=== PATIENT | male | born 1970 | race Caucasian/White ===

== ENCOUNTER 2018-05-26 08:00 | Outpatient (CLI) | payer OTHER ==
[2018-05-26 12:51] LABS: BASOPHILS # (AUTO) 0.1 10^3/uL (0.0-0.1); BASOPHILS % (AUTO) 0.6 %; EOSINOPHILS # (AUTO) 0.1 10^3/uL (0.0-0.7); EOSINOPHILS % (AUTO) 1.3 %; HGB - HEMOGLOBIN 13.6 g/dL (14.0-18.0); LYMPHOCYTES # (AUTO) 1.2 10^3/uL (1.5-3.5); MEAN CORPUSCULAR HEMOGLOBIN 29.6 pg (27.0-31.0); MEAN CORPUSCULAR HGB CONC 36.6 g/dL (32.0-36.0); MEAN CORPUSCULAR VOLUME 80.8 fL (80.0-94.0); MEAN PLATELET VOLUME 7.5 fL (7.4-11.4); MONOCYTES # (AUTO) 0.6 10^3/uL (0.0-1.0); NEUTROPHILS # (AUTO) 7.9 10^3/uL (1.5-6.6); NEUTROPHILS % (AUTO) 80.1 %; PLT - PLATELET COUNT 168 10^3/uL (130-450); RED BLOOD COUNT 4.59 10^6/uL (4.70-6.10); RED CELL DISTRIBUTION WIDTH 17.2 % (12.0-15.0); WHITE BLOOD COUNT 9.9 x10^3/uL (4.8-10.8)
[2018-05-26 13:20] LABS: ALBUMIN 4.6 g/dL (3.2-5.5); ALBUMIN/GLOBULIN RATIO 2.1 (1.0-2.2); ALKALINE PHOSPHATASE 66 IU/L (42-121); ALT ALANINE AMINOTRANSFERASE 22 IU/L (10-60); AST ASPARTATE AMINOTRANSFERASE 25 IU/L (10-42); BILIRUBIN,TOTAL 1.3 mg/dL (0.2-1.0); BUN - BLOOD UREA NITROGEN 15 mg/dL (6-20); CALCIUM 9.1 mg/dL (8.5-10.3); CARBON DIOXIDE - CO2 26 mmol/L (21-32); CHLORIDE 103 mmol/L (101-111); CHOL/HDL RATIO 3.1 (<5.0); CHOLESTEROL 145 mg/dL; CREATININE 0.7 mg/dL (0.6-1.2); GFR - MDRD 119 (>89); GLUCOSE 94 mg/dL (70-100); HDL CHOLESTEROL 47 mg/dL; LDL CHOLESTEROL,CALCULATED 77 mg/dL; LDL/HDL RATIO 1.6 (<3.6); SODIUM 135 mmol/L (135-145); TOTAL PROTEIN 6.8 g/dL (6.7-8.2); VLDL CHOLESTEROL 21 mg/dL
== END 2018-05-26 23:59 ==
LOC: LAB.WCP 08:00
PROVIDERS: ATTEND Family Medicine
DX: Z00.00 Encounter for general adult medical examination without abnormal findings (principal)
CPT/HCPCS: 36415; 80053; 80061; 83721; 84443; 85025

== ENCOUNTER 2018-06-09 08:00 | Outpatient (CLI) | payer OTHER ==
[2018-06-09 14:08] LABS: MEAN RETIC VALUE 84.8; RED BLOOD COUNT 4.67 10^6/uL (4.70-6.10)
[2018-06-09 16:28] LABS: FERRITIN 222.7 ng/mL (23.9-336.2)
[2018-06-09 16:32] LABS: FOLATE 8.45 ng/mL (5.90 - >24.8)
[2018-06-09 17:15] LABS: % IRON SATURATION 40 % (20-50); IRON 97 ug/dL (45-182); TOTAL IRON BINDING CAPACITY 241 ug/dL (250-450); TRANSFERRIN 172 mg/dL (180-329)
== END 2018-06-09 23:59 | disposition home or self-care (01) ==
LOC: LAB.WCP 08:00
PROVIDERS: ATTEND Family Medicine
DX: D64.9 Anemia, unspecified (principal)
CPT/HCPCS: 36415; 82728; 82746; 83540; 84466; 85044

== ENCOUNTER 2018-07-16 09:19 | Outpatient (CLI) | payer OTHER ==
--- NOTE | 2018-07-17 20:08 | MRI Report ---
Reason: ROTATOR CUFF TENDONITIS Procedure Date: 07/16/2018 Accession Number: [id number] / [id number] Procedure: MRI - Shoulder RT W/O CPT Code: FULL RESULT: EXAM: RIGHT SHOULDER MRI WITHOUT CONTRAST. EXAM DATE: 07/16/2018 10:21 AM. CLINICAL HISTORY: Rotator cuff tendonitis. Right shoulder pain after injury on 05/26/2018. COMPARISON: 05/26/2018 radiographs. TECHNIQUE: Multiplanar, multisequence T1-weighted and fluid-sensitive sequences of the shoulder without contrast. Other: None. FINDINGS: Acromioclavicular Region: The acromion is type II. Severe acromioclavicular osteoarthropathy as evidenced by bony hypertrophy, periarticular cyst formation, and a mild effusion. The coracoacromial and coracoclavicular ligaments are intact. A mild amount of fluid is in the subacromial/subdeltoid bursa. Glenohumeral Region: No subluxation. A moderate effusion is seen. The articular cartilage is unremarkable. The glenohumeral ligaments and joint capsule are unremarkable. Bone Marrow: No fractures. Cysts are in the greater tuberosity. Labrum: As there is a paralabral cyst adjacent to the anteroinferior labrum, a poorly visualized tear is suspected. The paralabral cyst measures approximately 4 mm (41/14). Musculature/Rotator Cuff: The subscapularis tendon is intact. The supraspinatus tendon has an intrasubstance tear throughout its width that measures as much as 1.9 cm in length and up to 75% of the thickness. The infraspinatus tendon contains a small intrasubstance tear at the myotendinous junction. The teres minor tendon is intact. No edema or fatty atrophy. Biceps Tendon: The biceps tendon is severely thickened and contains longitudinal tearing. Other: The subcutaneous tissues are unremarkable. IMPRESSION: 1. Severe acromioclavicular osteoarthropathy. 2. Mild subacromial/subdeltoid bursitis. 3. Moderate glenohumeral joint effusion. 4. A paralabral cyst adjacent to the anterior inferior labrum raises suspicion for a tear. This could be further evaluated with an MRI arthrogram if clinically indicated. 5. Large intrasubstance tear of the supraspinatus tendon. 6. Small intrasubstance tear of the infraspinatus myotendinous junction. 7. Severe biceps tendinosis with longitudinal tearing. [facility] MUSCULOSKELETAL RADIOLOGY SECTION
== END 2018-07-16 09:20 | disposition home or self-care (01) ==
LOC: DI 09:19
PROVIDERS: ATTEND Orthopaedic Surgery Sports Medicine
DX: M19.011 Primary osteoarthritis, right shoulder (principal); M25.411 Effusion, right shoulder; M75.51 Bursitis of right shoulder; M75.101 Unspecified rotator cuff tear or rupture of right shoulder, not specified as traumatic; S43.491A Other sprain of right shoulder joint, initial encounter; S46.211A Strain of muscle, fascia and tendon of other parts of biceps, right arm, initial encounter; M25.811 Other specified joint disorders, right shoulder

== ENCOUNTER 2018-09-12 10:56 | Outpatient (CLI) | payer OTHER ==
[2018-09-12 18:12] LABS: BASOPHILS % (AUTO) 0.4 %; EOSINOPHILS # (AUTO) 0.1 10^3/uL (0.0-0.7); EOSINOPHILS % (AUTO) 0.8 %; HGB - HEMOGLOBIN 13.9 g/dL (14.0-18.0); LYMPHOCYTES # (AUTO) 0.9 10^3/uL (1.5-3.5); LYMPHOCYTES % (AUTO) 11.5 %; MEAN CORPUSCULAR HEMOGLOBIN 29.8 pg (27.0-31.0); MEAN CORPUSCULAR HGB CONC 35.8 g/dL (32.0-36.0); MEAN CORPUSCULAR VOLUME 83.1 fL (80.0-94.0); MEAN PLATELET VOLUME 7.4 fL (7.4-11.4); MEAN RETIC VALUE 85.1; MONOCYTES # (AUTO) 0.4 10^3/uL (0.0-1.0); MONOCYTES % (AUTO) 5.4 %; NEUTROPHILS # (AUTO) 6.5 10^3/uL (1.5-6.6); NEUTROPHILS % (AUTO) 81.9 %; PLT - PLATELET COUNT 153 10^3/uL (130-450); RED BLOOD COUNT 4.66 10^6/uL (4.70-6.10); RED CELL DISTRIBUTION WIDTH 16.8 % (12.0-15.0); WHITE BLOOD COUNT 7.9 x10^3/uL (4.8-10.8)
[2018-09-12 19:06] LABS: FERRITIN 254.3 ng/mL (23.9-336.2)
[2018-09-12 19:09] LABS: FOLATE 9.26 ng/mL (5.90 - >24.8)
[2018-09-12 19:16] LABS: % IRON SATURATION 36 % (20-50); IRON 94 ug/dL (45-182); TOTAL IRON BINDING CAPACITY 262 ug/dL (250-450); TRANSFERRIN 187 mg/dL (180-329)
== END 2018-09-12 10:57 | disposition home or self-care (01) ==
LOC: LAB.F 10:56
PROVIDERS: ATTEND Internal Medicine
DX: R53.83 Other fatigue (principal)
CPT/HCPCS: 36415; 81599; 82607; 82728; 82746; 83021; 83540; 84466; 85014; 85018; 85025; 85041; 85044

== ENCOUNTER 2018-10-14 08:26 | Outpatient (CLI) | payer OTHER ==
[2018-10-14 08:43] LABS: BASOPHILS # (AUTO) 0.1 10^3/uL (0.0-0.1); BASOPHILS % (AUTO) 0.7 %; EOSINOPHILS # (AUTO) 0.1 10^3/uL (0.0-0.7); EOSINOPHILS % (AUTO) 0.7 %; HGB - HEMOGLOBIN 13.9 g/dL (14.0-18.0); LYMPHOCYTES # (AUTO) 0.9 10^3/uL (1.5-3.5); MEAN CORPUSCULAR HEMOGLOBIN 29.4 pg (27.0-31.0); MEAN CORPUSCULAR HGB CONC 36.1 g/dL (32.0-36.0); MEAN CORPUSCULAR VOLUME 81.6 fL (80.0-94.0); MEAN PLATELET VOLUME 6.7 fL (7.4-11.4); MONOCYTES # (AUTO) 0.6 10^3/uL (0.0-1.0); MONOCYTES % (AUTO) 6.4 %; NEUTROPHILS # (AUTO) 7.5 10^3/uL (1.5-6.6); NEUTROPHILS % (AUTO) 82.2 %; PLT - PLATELET COUNT 153 10^3/uL (130-450); RED BLOOD COUNT 4.72 10^6/uL (4.70-6.10); RED CELL DISTRIBUTION WIDTH 16.9 % (12.0-15.0); WHITE BLOOD COUNT 9.1 x10^3/uL (4.8-10.8)
[2018-10-14 10:49] LABS: ALBUMIN 4.3 g/dL (3.2-5.5); ALBUMIN/GLOBULIN RATIO 1.6 (1.0-2.2); BILIRUBIN,TOTAL 1.4 mg/dL (0.2-1.0); CALCIUM 9.3 mg/dL (8.5-10.3); CREATININE 0.7 mg/dL (0.6-1.2)
== END 2018-10-14 08:27 | disposition home or self-care (01) ==
LOC: LAB 08:26
PROVIDERS: ATTEND Orthopaedic Surgery Sports Medicine
DX: Z01.818 Encounter for other preprocedural examination (principal); M75.101 Unspecified rotator cuff tear or rupture of right shoulder, not specified as traumatic; M75.121 Complete rotator cuff tear or rupture of right shoulder, not specified as traumatic; M75.41 Impingement syndrome of right shoulder
CPT/HCPCS: 36415; 80053; 85025; 93005

== ENCOUNTER 2018-11-16 06:01 | Day surgery (SDC) | payer OTHER ==
[2018-11-16] MEDS ORDERED: LACTATED RINGERS 1,000 ML IV ONE ×2 (06:19→10:12)
[2018-11-16] MEDS ORDERED: CEFAZOLIN SODIUM IN 0.9 % NACL 2 GM/100 ML BAG IV ONE (06:42)
[2018-11-16] MEDS ORDERED: EPINEPHrine 1 MG/ML AMP ONE (07:02)
--- NOTE | 2018-11-16 07:11 | ANESTHESIA ---
Pre-Anesthesia VS, & Labs - Diagnosis rotator cuff impingement - Procedure Right shoulder Arthroscopy, RCR Vital Signs: Temp Pulse Resp BP Pulse Ox 36.4 C L 70 12 137/87 H 96 11/16/18 06:19 11/16/18 06:19 11/16/18 06:19 11/16/18 06:19 11/16/18 06:19 Height 5 ft 6 in Weight (kg) 70.3 kg Body Mass Index 25.2 - NPO >8 hours Home Medications and Allergies Home Medications: Ambulatory Orders Cyclobenzaprine HCl 10 mg PO TID PRN 10/14/18 Pnv No.121/Iron/Folic Acid [ Multivitamin Tablet] 1 each PO DAILY 10/14/18 Cholecalciferol (Vitamin D3) [Vitamin D3] 1,000 unit PO DAILY 11/16/18 Cyanocobalamin (Vitamin B-12) [Vitamin B-12] 2 tab PO DAILY 11/16/18 Multivitamin [Multiple Vitamins] 1 tab PO DAILY 11/16/18 Meloxicam 15 mg PO DAILY 10/04/18 Cyclobenzaprine HCl 10 mg PO TID PRN 10/14/18 Pnv No.121/Iron/Folic Acid [ Multivitamin Tablet] 1 each PO DAILY 10/14/18 Cholecalciferol (Vitamin D3) [Vitamin D3] 1,000 unit PO DAILY 11/16/18 Cyanocobalamin (Vitamin B-12) [Vitamin B-12] 2 tab PO DAILY 11/16/18 Multivitamin [Multiple Vitamins] 1 tab PO DAILY 11/16/18 Allergies/Adverse Reactions: Allergies Allergy/AdvReac Type Severity Reaction Status Date / Time naproxen AdvReac bladder Verified 10/14/18 09:49 irritation Anes History & Medical History - Anesthetic History Anesthesia Complications: reports: Post-Operative Nausea/Vomiting - Medical History Cardiovascular: reports: Murmur, Other (denies chest pain) Pulmonary: reports: None Gastrointestinal: reports: Other Urinary: reports: None Neuro: reports: None Musculoskeletal: reports: Osteoarthritis Endocrine/Autoimmune: reports: None Blood Disorders: reports: Anemia Skin: reports: None Smoking Status: Never smoker - Surgical History General: Other Orthopedic: Other Exam General: Alert Dental: WNL Mouth Opening: Greater than 4 Fingerbreadths Mallampati classification: I Thyromental Distance: greater than 6 cm Respiratory: Lungs clear Cardiovascular: Regular rate, Normal S1, Normal S2 Plan Anesthesia Type: General Consent for Procedure(s) Verified and Reviewed: Yes Code Status: Attempt Resuscitation ASA classification: 1-Healthy patient Is this case an emergency?: No
[2018-11-16] MEDS ORDERED: SCOPOLAMINE PATCH TOP ONE (07:22)
[2018-11-16] MEDS ORDERED: BUPIVACAINE 0.25%-EPI 1:200000 PF 30 ML VIAL ONE (07:31)
[2018-11-16] MEDS ORDERED: fentaNYL 100 MCG/2 ML VIAL IVP ONE (08:00)
[2018-11-16] MEDS ORDERED: DEXAMETHASONE 4 MG/ML VIAL IVP ONE (08:00)
[2018-11-16] MEDS ORDERED: MIDAZOLAM 2 MG/2 ML VIAL IVP ONE (08:00)
[2018-11-16] MEDS ORDERED: ROCURONIUM 50 MG/5 ML VIAL IVP ONE (08:00)
[2018-11-16] MEDS ORDERED: PROPOFOL 200 MG/20 ML VIAL IVP ONE (08:00)
[2018-11-16] MEDS ORDERED: BUPIVACAINE 0.5% PF 10 ML VIAL IM ONE (08:00)
[2018-11-16] MEDS ORDERED: ONDANSETRON 4 MG/2 ML VIAL IVP ONE (08:00)
[2018-11-16] MEDS ORDERED: ONDANSETRON 4 MG/2 ML VIAL IVP PRN (10:01)
[2018-11-16] MEDS ORDERED: oxyCODONE 5 MG TABLET PO PRN (10:03)
--- NOTE | 2018-11-16 10:06 | IMMEDIATE POSTOPERATIVE NOTE ---
Immediate Postoperative Note - Procedure Note Procedure Date: 11/16/18 Pre-Op Diagnosis: Right shoulder rotator cuff tear subacromial impinge Procedure: Right shoulder arthroscopic rotator cuff repair and subacromial decompressi Post-Op Diagnosis: Same [employer] Developer: None Anesthesia Type: General ET tube, Local, Regional block Findings: As above Complications: No complications Estimated Blood Loss (in cc): 25 Specimens and Cultures: None Plan of Care: Patient tolerated procedure well instrument and sponge counts correct patient transferred to recovery room in stable condition Patient will follow standard postoperative right shoulder rotator cuff repair protocol. He will do no right shoulder active motion. He may gently move elbow wrist and hand when at rest though generally would be in sling unless showering after 3 days. Patient will follow-up in 10 to 14 days or sooner on an as-needed basis if problems questions or worsening of his condition should arise
[2018-11-16] MEDS ORDERED: PROMETHAZINE 25 MG/1 ML VIAL ONE (10:28)
[2018-11-16 11:46] VITALS: BP 130/80
--- NOTE | 2018-11-16 12:18 | OPERATIVE REPORT ---
DATE OF SERVICE: 11/16/2018 Physician: Martell Ahumada MD SURGEON: Martell Ahumada MD MANAGER CAMP: None. ANESTHESIA PROVIDER: Kady Barrera CRNA. ANESTHESIA: Right side regional block shoulder under ultrasound guidance, general endotracheal. Local anesthesia, 20 mL of 0.25% Marcaine with epinephrine local. ESTIMATED BLOOD LOSS: Less than 25 mL COMPRESSION DEVICE: Bilateral calf SCD boots. PREOPERATIVE ANTIBIOTICS: 2 grams weight-based IV Ancef. ORTHOPEDIC IMPLANTS 1. 2 x 5.5 play BioComposite Arthrex anchor. 2. Additional #2 FiberWire suture. PREOPERATIVE DIAGNOSES 1. Right shoulder rotator cuff tear. 2. Right shoulder subacromial impingement. POSTOPERATIVE DIAGNOSES 1. Right shoulder rotator cuff tear. 2. Right shoulder subacromial impingement. PROCEDURE 1. Right shoulder arthroscopic rotator cuff repair, supraspinatus. 2. Right shoulder arthroscopic subacromial decompression. HISTORY OF PRESENT ILLNESS AND INDICATIONS: Patient is an active 48-year-old male who is known to have a tear of the supraspinatus. He had a right shoulder impingement and had a spontaneous rupture of the long head biceps. He was indicated for operative treatment. Please see previous clinic discussion for risks, benefits, alternatives. These were again highlighted with him as well as his significant other, JENNIFER, in the preoperative care unit. He verbalized understanding of the above and previous discussion questions were answered. He verbalizes wish to proceed with operative treatment. Informed consent was given. INTRAOPERATIVE FINDINGS: Patient was noted to have grade 1-2 chondromalacia of glenohumeral joint, particularly of the glenoid with fraying of the labrum and significant fraying of residual long head biceps from the superior labrum. High-grade and in parts small complete tear of the anterior aspect of the supraspinatus, as well as some interstitial tearing more proximal towards the tendon intratendinous portion with some stranding and small wwkw-rt-ycvb split of the tendinous portion of the supraspinatus. Post-repair, the rotator cuff was to the near anatomic footprint with good integrity of both the repair to the greater tuberosity as well as the sdmj-bk-eyjh split. There is downsloping of the anterior aspect of the acromion, which was converted to a type 1 acromion post-procedure. PROCEDURE: On 11/16/2018 patient was identified in the preoperative care unit. He identified his right shoulder as the operative site. This is signed. Patient received preoperative weight-based IV Ancef. He was brought to the operating room, placed supine on the operating table. General anesthesia was administered, ultrasound-guided right side regional block administered in the preoperative care unit prior bringing to the operating room. At this point, once the patient is under general anesthesia, he was placed left side down lateral decubitus position with appropriately placed axillary roll to avoid any encumbrance of the axilla. Down leg is gel-padded, beanbag position was used. Head, neck and extremities placed in anatomically comfortable and safe positions to avoid peripheral nerve stretch compression. SCD boots were on the bilateral lower extremity calves. At this point, right upper extremity is draped out and then pre-scrubbed with Hibiclens solution followed by alcohol. At this point, the right upper extremity and right shoulder were prepped and draped in the usual sterile fashion; 15 pounds of traction are used. At this point, surgical pause identified as right shoulder. Local anesthetic was infused posteriorly, anteriorly and laterally. A small incision was made posteriorly. Scope was introduced into the glenohumeral joint. A diagnostic arthroscopy was carried out. Please see operative findings. At this point, portal was created into the rotator interval and meniscal shaver was used to debride the superior labrum of frayed long head biceps residual tissue. At this point, the supraspinatus was identified and the soft injured area anteriorly was identified and marked with a PDS, using a spinal needle and then attention was directed towards the subacromial space. At this point, a lateral incision was made. A combination of meniscal shaver, and arthroscopic heating device with appropriate flow to avoid thermal injury was used to accomplish the soft tissue debridement of the subacromial space. Coracoacromial ligament is elevated off the acromion and then the anterior aspect of the acromion is burred to a type 1 acromion. At this point, attention was directed towards the rotator cuff tear. A blunt probe easily pushed through the tearing of the anterior aspect of the supraspinatus. At this point, this area was developed with a mechanical shaver as well as meniscal baskets to a fresh edge of rotator cuff tissue. The adjacent areas were probed and noted to be stable and then just proximal to this area. There was noted to be a small wzlk-zb-rbtf split with some stranding of the fibers there which were repaired later with vxuv-wr-yumr suture. At this point, the rotator cuff footprint was debrided, first with a mechanical shaver and then a bur and then sequential anterior and posterior anchors were placed, followed by 5 simple sutures in a posterior horizontal mattress suture using a Scorpion device. These were tied in reverse order thereby re-apposing the rotator cuff to the near-anatomic footprint. Sutures were tied. Suture limbs were cut. At this point, I decided that there was a small tear that would benefit from a rzdy-by-delz repair. As such, a suture shuttle was used to place 2 simple skbl-wv-mklv sutures in the abraded and stranded area of the supraspinatus tendon. These were passed and then tied thereby re-apposing this area of apro-xk-eccz injury. At this point, the subacromial space was copiously irrigated and evacuated of loose debris. Instruments are removed. Local anesthesia was infused around the incisions. Arthroscopic portals were closed using interrupted nylon suture. Skin is washed and dried. Xeroform dressing is applied. Dry sterile dressing was applied MicroPort micropore tape was applied. The patient was placed in abduction pillow sling. It should be noted that an auxiliary anterolateral incision was used for placement of anchors. Patient tolerated the procedure well. Instrument and sponge counts were correct. Patient was brought to the recovery room in stable condition. He will follow standard postoperative rotator cuff repair protocol which was previously reviewed with him and his significant other. Patient was put on perioperative antibiotics for 24 hours, perioperative analgesia medication, as well as antinausea medication. Denies any contraindication to medications prescribed, will use them as directed. Follow up in 10-14 days in Orthopedic Clinic, though sooner should problems or questions arise. The aforementioned reviewed with the patient preoperatively and then again with patient's significant other postoperatively as were the arthroscopic photos. Her questions were answered to her understanding and satisfaction with plan as outlined. TD: 11/16/2018 11:49 PIERO
== END 2018-11-16 06:02 | disposition home or self-care (01) ==
LOC: SDS 06:01
PROVIDERS: ATTEND Orthopaedic Surgery Sports Medicine
PROC: 0RNJ4ZZ Release Right Shoulder Joint, Percutaneous Endoscopic Approach (ICD-10-PCS; 2018-11-16)
PROC: 0LQ14ZZ Repair Right Shoulder Tendon, Percutaneous Endoscopic Approach (ICD-10-PCS; principal; 2018-11-16 07:30)
DX: S46.011A Strain of muscle(s) and tendon(s) of the rotator cuff of right shoulder, initial encounter (principal); S46.111A Strain of muscle, fascia and tendon of long head of biceps, right arm, initial encounter; S43.491A Other sprain of right shoulder joint, initial encounter; M75.41 Impingement syndrome of right shoulder; M94.211 Chondromalacia, right shoulder
CPT/HCPCS: 29826; 29827; C1713; J0690; J3490; J7120

== ENCOUNTER 2019-01-27 11:48 | Day surgery (SDC) | payer OTHER ==
[~2019-01-27 11:48] MED LIST: BUPIVACAINE 0.5% PF 10 ML VIAL ONE
[2019-01-27] MEDS ORDERED: MIDAZOLAM 2 MG/2 ML VIAL IVP ONE (11:49)
[2019-01-27] MEDS ORDERED: PROPOFOL 200 MG/20 ML VIAL IVP ONE (11:49)
[2019-01-27] MEDS ORDERED: ONDANSETRON 4 MG/2 ML VIAL IVP ONE (11:49)
[2019-01-27] MEDS ORDERED: DEXAMETHASONE 4 MG/ML VIAL IVP ONE (11:49)
[2019-01-27] MEDS ORDERED: fentaNYL 100 MCG/2 ML VIAL IVP ONE (11:49)
[2019-01-27] MEDS ORDERED: LACTATED RINGERS 1,000 ML IV ONE ×2 (11:56→14:39)
[2019-01-27] MEDS ORDERED: CEFAZOLIN SODIUM IN 0.9 % NACL 2 GM/100 ML BAG IV ONE (12:08)
--- NOTE | 2019-01-27 12:25 | ANESTHESIA ---
Pre-Anesthesia VS, & Labs - Diagnosis L inguinal hernia - Procedure L inguinal hernia repair Vital Signs: Temp Pulse Resp BP Pulse Ox 36.7 C 51 L 15 104/73 99 01/27/19 12:09 01/27/19 12:09 01/27/19 12:09 01/27/19 12:09 01/27/19 12:09 Height 5 ft 6 in Weight (kg) 71.67 kg Body Mass Index 25.2 - NPO Last Fluid Intake: coffee @0555 Last Food Intake: >8 Home Medications and Allergies Home Medications: Ambulatory Orders Acetaminophen [Tylenol] 650 mg PO Q6H PRN 01/26/19 Ibuprofen [Motrin] 600 mg PO Q6H PRN 01/26/19 Cyclobenzaprine HCl 10 mg PO TID PRN 10/14/18 Pnv No.121/Iron/Folic Acid [ Multivitamin Tablet] 1 each PO DAILY 10/14/18 Cyanocobalamin (Vitamin B-12) [Vitamin B-12] 2 tab PO DAILY 11/16/18 Acetaminophen [Tylenol] 650 mg PO Q6H PRN 01/26/19 Ibuprofen [Motrin] 600 mg PO Q6H PRN 01/26/19 Allergies/Adverse Reactions: Allergies Allergy/AdvReac Type Severity Reaction Status Date / Time naproxen AdvReac bladder Verified 10/14/18 09:49 irritation oxycodone AdvReac Nausea Verified 01/24/19 16:09 Anes History & Medical History - Anesthetic History Anesthesia Complications: reports: Post-Operative Nausea/Vomiting (scope patched placed @R ear pre-op) Family history of Anesthesia Complications: Denies Family history of Malignant Hyperthermia: Denies - Medical History Cardiovascular: reports: Murmur Pulmonary: reports: None Gastrointestinal: reports: None Urinary: reports: None Neuro: reports: None Musculoskeletal: reports: Osteoarthritis Endocrine/Autoimmune: reports: None Blood Disorders: reports: Anemia Skin: reports: None Smoking Status: Current some day smoker Psychosocial: reports: Cannabis - Surgical History General: Other Orthopedic: Rotator cuff repair, Other Exam General: Alert, Oriented x3, Cooperative Dental: WNL Mouth Openin Fingerbreadth Neck Mobility: Normal Mallampati classification: II Thyromental Distance: 4-6 cm Respiratory: Lungs clear, Normal breath sounds, No respiratory distress Cardiovascular: Regular rate Neurological: Normal speech Mental/Cognitive Status: Alert/Oriented X3, Normal for patient Cognitive Status: Within normal limits Plan Anesthesia Type: General Consent for Procedure(s) Verified and Reviewed: Yes Code Status: Attempt Resuscitation ASA classification: 2-Mild systemic disease Is this case an emergency?: No
[2019-01-27] MEDS ORDERED: SCOPOLAMINE PATCH TOP ONE (12:29)
[2019-01-27] MEDS ORDERED: BUPIVACAINE 0.5% PF 10 ML VIAL IM ONE (13:46)
[2019-01-27] MEDS ORDERED: ONDANSETRON 4 MG/2 ML VIAL IVP PRN (14:20)
[2019-01-27] MEDS ORDERED: HYDROcod/ACETAM 5/325 MG TABLET PO PRN (14:20)
[2019-01-27] MEDS ORDERED: HYDROmorphone 0.5 MG/0.5 ML SYRINGE IVP PRN (14:20)
--- NOTE | 2019-01-27 14:20 | OPERATIVE REPORT ---
Operative Report - General Procedure Date: 01/27/19 Planned Procedure: Left inguinal herniorrhaphy Pre-Op Diagnosis: Left inguinal hernia Procedure Performed: Left indirect inguinal herniorrhaphy with mesh Post Op Diagnosis: Sliding indirect left inguinal hernia - Procedure Note Primary Surgeon: Coy Alvarez MD Anesthesia Provider: Louie Pinzon CRNA Anesthesia Technique: General LMA, Local (30 mL of half percent Marcaine) IV Fluids (mL): 900 Estimated Blood Loss (mL): 5 Drain/Tube Type: Other (None.) Complications: None. - Other Other Information/Narrative: OPERATIVE DESCRIPTION/REPORT: After verbal and written informed consent was obtained detailing the risks of infection, bleeding requiring transfusion with its risks, nerve injury, and , and after I met with the patient confirming the surgery and the site of the surgery and after initialing the site of the surgery with a surgical marker, the patient was brought to the operative suite and placed supine on the operat ing table. Great care was taken to avoid pressure points to prevent pressure necrosis or nerve injury. Monitoring devices were applied along with TEDs and pneumatic compressive stockings (to prevent DVT). The patient received preoperative antibiotics for surgical prophylaxis. Louie Pinzon CRNA sedated and anesthetized the patient for the entire procedure. The patient was prepped and draped in the usual sterile manner. With the patient draped my initials were clearly visible. A "time in" then confirmed that the patient was identified with 3 identifiers (name, date and medical record number), the history and physical was in the chart, the signed consent confirming the procedure was in the chart, the patient was in the correct position, the aforementioned prophylactic measures were in place or given, we had the correct personnel and equipment to complete the procedure and that anesthesia, surgery and nursing were given an opportunity to express any concerns. With the agreeme nt of everyone in the room, we proceeded with the operation. A standard inguinal incision was made and dissection was carried down to the external oblique aponeurosis using a combination of Metzenbaum scissors and Bovie electrocautery. The external oblique aponeurosis was cleared of overlying adherent tissue, and the external ring was delineated. The external oblique was the incised with a scalpel and this incision was carried out to the external ring using Metzenbaum scissors. Having exposed the inguinal canal, the cord structures were from the canal using blunt dissection, and a [place] drain was placed around the cord structures at the level of the pubic tubercle. This [place] drain was then used to retract the cord structures as needed. Adherent cremasteric muscle was dissected free from the cord using Bovie electrocautery. The cord was then explored using a combination of sharp and blunt dissection, and the sac was found anteromedially to the cord structures. The sac was dissected free from the cord structures using a combination of blunt dissection and Bovie electrocautery. Once preperitoneal fat was encountered, the dissection stopped and the sac was examined and noted to be a sliding indirect inguinal hernia sac. As a result, the sac was not high ligated but rather placed back into the abdominal cavity and an extra-large Bard Perfix plug (Ref# [id number], Lot#[id number], use date 2023-06-13) inserted into the internal ring. The plug was secured to the internal ring by interrupted 2-0 PDS sutures. The Bard Perfix enlay patch was then placed on the floor of the inguinal canal and secured in place using interrupted 0 PDS sutures to the conjoined tendon superiorly, pubic tubercle medially, and shelving edge inferiorly. By reinforcing the floor with the enlay patch, a new internal ring was thus formed. The Steven drain was removed. The wound was then irrigated using sterile saline, and hemostasis was obtained using Bovie electrocautery. The incision in the external oblique was approximated using a 3-0 Vicryl in a running fashion, thus reforming the external ring. The fascia and skin was then injected with the 1/2% marcaine for fpc pain control. The skin incision was approximated with 4-0 Monocryl in a subcuticular fashion. The skin prep was removed and Dermabond was applied. At this point a time out was performed that confirmed that all the counts were correct, the procedure that was performed, the blood loss, the IV fluids administered, and the patients condition. A dressing was then applied. Gentle downward traction ensured that the testes were well seated in the scrotum. Having tolerated the procedure well, the patient was taken to short stay in good and stable condition. Toplist disclaimer: This document was created in part using voice recognition technology. Because of the inherent limitations of the system ([employer]'s [employer] user manual states that the licensee understands that speech recognition is a statistical process and that recognition errors are inherent in the process), occasional same sounding word substitutions and grammatical errors do occur and persist despite proofreading. Please read this document for context.
[2019-01-27 16:10] VITALS: BP 114/72
== END 2019-01-27 11:49 | disposition home or self-care (01) ==
LOC: SDS 11:48 → MS2 15:59 → SDS 15:59
PROVIDERS: ATTEND Surgery
PROC: 0YU60JZ Supplement Left Inguinal Region with Synthetic Substitute, Open Approach (ICD-10-PCS; principal; 2019-01-27 13:30)
DX: K40.90 Unilateral inguinal hernia, without obstruction or gangrene, not specified as recurrent (principal); M19.90 Unspecified osteoarthritis, unspecified site; D64.9 Anemia, unspecified; Z72.89 Other problems related to lifestyle; R01.1 Cardiac murmur, unspecified
CPT/HCPCS: 49525; C1781; J0690; J3490; J7120

== ENCOUNTER 2019-03-19 07:21 | Outpatient (CLI) | payer OTHER ==
--- NOTE | 2019-03-19 19:35 | Ultrasound Report ---
Reason: POST PROCEDURAL SEROMA OF GENITOURINARY SYSTEM ORGAN OR STRUCTURE Procedure Date: 03/19/2019 Accession Number: [id number] / [id number] Procedure: US - Testicle CPT Code: Addended Final Report FULL RESULT: EXAM: SCROTAL ULTRASOUND EXAM DATE: 03/19/2019 08:22 AM. CLINICAL HISTORY: POST PROCEDURAL SEROMA OF GENITOURINARY SYSTEM ORGAN OR STRUCTURE. COMPARISON: None. TECHNIQUE: Real-time scanning was performed with static images obtained. Color-flow images were utilized. FINDINGS: Right: Testis: 4.8 x 2.1 x 2.8 cm. Normal size and echotexture. No mass, calcification, or abnormal blood flow. Epididymis: 5.2 x 1.0 x 0.4 cm. A small cyst in the epididymal head measuring up to 1.4 cm Hydrocele: Trace hydrocele Varicocele: None. Left: Testis: 4.7 x 2.3 x 2.7 cm. Normal size and echotexture. No mass, calcification, or abnormal blood flow. Epididymis: 3.9 x 1.0 x 0.4 cm. Normal size and echotexture. No mass or abnormal blood flow. Hydrocele: Trace Varicocele: None. Other: Along left inguinal ligament, there is a multiseptated cystic appearing fluid collection measuring 10.1 x 3.4 x 5.7 cm. Located anterior to the mesh from the hernia repair. IMPRESSION: 1. Fluid collection in the left groin could represent postoperative hematoma, seroma, or abscess. 2. No evidence of torsion. Trace bilateral hydroceles. [facility] The call report notification system was initiated by Dr. Dario Cortez at 07:33 PM on 03/19/2019. ADDENDUM: 03/19/19 19:36 The above call report findings were discussed with Dr. Fang by Dr. Dario Cortez at 07:36 PM on 03/19/2019.
== END 2019-03-19 07:22 | disposition home or self-care (01) ==
LOC: DI 07:21
PROVIDERS: ATTEND Surgery
DX: N99.842 Postprocedural seroma of a genitourinary system organ or structure following a genitourinary system procedure (principal)
CPT/HCPCS: 76870

== ENCOUNTER 2019-03-25 13:55 | Outpatient (CLI) | payer OTHER | END 2019-03-25 13:56 | disposition home or self-care (01) | LOC: DI 13:55 | PROVIDERS: ATTEND Internal Medicine | DX: Z53.9 Procedure and treatment not carried out, unspecified reason (principal) ==

== ENCOUNTER 2019-04-04 12:01 | Day surgery (SDC) | payer OTHER ==
[~2019-04-04 12:01] MED LIST changes: -BUPIVACAINE 0.5% PF 10 ML VIAL ONE; +CEFAZOLIN SODIUM IN 0.9 % NACL 2 GM/100 ML BAG IV ONE
[2019-04-04] MEDS ORDERED: DEXAMETHASONE 4 MG/ML VIAL IVP ONE (12:02)
[2019-04-04] MEDS ORDERED: PROPOFOL 200 MG/20 ML VIAL IVP ONE (12:02)
[2019-04-04] MEDS ORDERED: KETOROLAC 30 MG/ML VIAL IVP ONE (12:02)
[2019-04-04] MEDS ORDERED: MIDAZOLAM 2 MG/2 ML VIAL IVP ONE (12:02)
[2019-04-04] MEDS ORDERED: fentaNYL 100 MCG/2 ML VIAL IVP ONE (12:02)
[2019-04-04] MEDS ORDERED: LACTATED RINGERS 1,000 ML IV ONE (12:37)
--- NOTE | 2019-04-04 13:00 | ANESTHESIA ---
Pre-Anesthesia VS, & Labs - Diagnosis left groin lymphocoele - Procedure left groin exploration with sclerosis and drain placement Vital Signs: Temp Pulse Resp BP Pulse Ox 36.6 C 72 16 129/83 H 04/04/19 12:22 04/04/19 12:22 04/04/19 12:22 04/04/19 12:22 Height 5 ft 6 in Weight (kg) 72.3 kg Body Mass Index 26.5 - NPO >8 hours Home Medications and Allergies Pnv No.121/Iron/Folic Acid [ Multivitamin Tablet] 1 each PO DAILY 10/14/18 Cyanocobalamin (Vitamin B-12) [Vitamin B-12] 2 tab PO DAILY 11/16/18 Acetaminophen [Tylenol] 650 mg PO Q6H PRN 01/26/19 Ibuprofen [Motrin] 600 mg PO Q6H PRN 01/26/19 Allergies/Adverse Reactions: Allergies Allergy/AdvReac Type Severity Reaction Status Date / Time naproxen AdvReac bladder Verified 02/07/19 14:17 irritation oxycodone AdvReac Nausea Verified 02/07/19 14:17 Anes History & Medical History - Anesthetic History Anesthesia Complications: reports: Post-Operative Nausea/Vomiting - Medical History Cardiovascular: reports: Murmur Pulmonary: reports: None Gastrointestinal: reports: None Urinary: reports: None Neuro: reports: None Musculoskeletal: reports: Osteoarthritis Endocrine/Autoimmune: reports: None Blood Disorders: reports: Anemia Skin: reports: None Smoking Status: Current some day smoker Psychosocial: reports: Cannabis - Surgical History General: Other Orthopedic: Rotator cuff repair, Other Exam General: Alert Dental: Poor dentition Mouth Openin Fingerbreadth Neck Mobility: Normal Mallampati classification: I Thyromental Distance: greater than 6 cm Respiratory: Lungs clear, Normal breath sounds, No respiratory distress, No accessory muscle use Cardiovascular: Regular rate, Normal S1, Normal S2, No murmurs Mental/Cognitive Status: Alert/Oriented X3, Normal for patient Cognitive Status: Within normal limits Plan Anesthesia Type: General Consent for Procedure(s) Verified and Reviewed: Yes Code Status: Attempt Resuscitation ASA classification: 2-Mild systemic disease Is this case an emergency?: No
[2019-04-04] MEDS ORDERED: ONDANSETRON 4 MG/2 ML VIAL IVP ONE (13:02)
[2019-04-04] MEDS ORDERED: BUPIVACAINE 0.5% PF 30 ML VIAL INFIL ONE ×2 (13:45)
[2019-04-04] MEDS ORDERED: LIDOCAINE 1%-EPI 1:100000 30 ML MDV SUBQ ONE ×2 (13:45)
[2019-04-04] MEDS ORDERED: ACETAMINOPHEN 325 MG TABLET PO PRN (14:32)
[2019-04-04] MEDS ORDERED: ONDANSETRON 4 MG/2 ML VIAL IVP PRN (14:32)
[2019-04-04] MEDS ORDERED: IBUPROFEN 600 MG TABLET PO PRN (14:32)
[2019-04-04] MEDS ORDERED: HYDROcod/ACETAM 7.5 MG/325 MG TABLET PO PRN (14:33)
[2019-04-04] MEDS ORDERED: HYDROmorphone 0.5 MG/0.5 ML SYRINGE ONE (15:10)
[2019-04-04] MEDS ORDERED: HYDROcod/ACETAM 7.5 MG/325 MG TABLET PO ONE (16:25)
--- NOTE | 2019-04-04 16:59 | OPERATIVE REPORT ---
Operative Report - General Procedure Date: 04/04/19 Planned Procedure: Left groin exploration with sclerotherapy and drain placement Pre-Op Diagnosis: Left groin recurrent seroma Procedure Performed: Left groin exploration with evacuation of hematoma and seroma, and sclerotherapy Post Op Diagnosis: Left groin recurrent hematoma and seroma - Procedure Note Primary Surgeon: Margarita Anesthesia Provider: AYAAN Pinzon Anesthesia Technique: General LMA Pathology: None Estimated Blood Loss (mL): 5 Drain/Tube Type: Brian drain Findings: Thick walled seroma cavity containing old blood Complications: None apparent - Other Other Information/Narrative: After obtaining informed consent, the patient is brought to the operating room and placed in the supine position on the operating table. Following successful induction of general endotracheal anesthesia, appropriate padding of all bony prominences, and placement of appropriate monitors, the left groin was prepped and draped in the standard surgical fashion. A timeout was held per scope protocol. All elements of the surgical safety checklist were followed before, during, and after the procedure. We began by infiltrating a mixture of local anesthetics medial to the anterior superior iliac spine on the left. We continued by infiltrating the existing healed incision with local anesthetic. This incision was repeated and carried down through the skin. We evacuated a large volume approximately 200 cc of serosanguineous fluid. We noted a thick rind around a well-developed seroma cavity. This rind was removed sharply from the underlying tissues being sure not to compromise the cord structures or the hernia repair. The wound was then irrigated with warm saline solution and checked for hemostasis. We noted that it seemed to continue to to repeatedly collect fluid but we could not identify a definite source. Several small vessels and lymphatics that we could visualize directly were oversewn.We are unable to identify any additional areas of continued lymphatic leakage. At this point a 15 Kinyarwanda Brian drain was placed in the tissue over the external oblique aponeurosis and beneath the Barbara's fascia layer. The skin and subcutaneous tissue was then closed in 2 layers and the drain sewn into place. 500 cc of doxycycline mixed and 10 mL of lidocaine was then instilled into the wound through the drain. The drain will remain clamped for 1 hour and will be opened in the PACU.All sponge, needle, and instrument counts were correct at the conclusion of the case. The patient was allowed to awake from anesthesia without difficulty and taken to the postanesthesia care unit in good condition.
[2019-04-04 17:00] VITALS: BP 132/70
[2019-04-04] MEDS ORDERED: DOXYCYCLINE 100 MG VIAL IV ONE (18:35)
== END 2019-04-04 12:02 | disposition home or self-care (01) ==
LOC: SDS 12:01
PROVIDERS: ATTEND Surgery
PROC: 0W3F0ZZ Control Bleeding in Abdominal Wall, Open Approach (ICD-10-PCS; principal; 2019-04-04 13:15)
DX: L76.34 Postprocedural seroma of skin and subcutaneous tissue following other procedure (principal); L76.32 Postprocedural hematoma of skin and subcutaneous tissue following other procedure; Y83.8 Other surgical procedures as the cause of abnormal reaction of the patient, or of later complication, without mention of misadventure at the time of the procedure; Y92.234 Operating room of hospital as the place of occurrence of the external cause; Z79.1 Long term (current) use of non-steroidal anti-inflammatories (NSAID); D64.9 Anemia, unspecified; F17.200 Nicotine dependence, unspecified, uncomplicated; Z72.89 Other problems related to lifestyle
CPT/HCPCS: 49999; A9270; J0690; J1170; J7120

== ENCOUNTER 2023-06-30 20:13 | Emergency (ER) | payer OTHER ==
[2023-06-30 20:31] VITALS: BP 156/82; O2SAT 100
--- NOTE | 2023-06-30 20:31 | ED Physician Documentation ---
History of Present Illness - Stated complaint Stated Complaint: TOE INJ - Chief complaint Chief Complaint: Ext Problem - History obtained from History obtained from: Patient - History of Present Illness Timing: Today Pain level max: 7 Pain level now: 7 - Additonal information Additional information: 53-year-old male presents to the emergency department the right second toe injury. Stubbed at home. Noted deformity. Tetanus up-to-date. He states feels like it is dislocated but could not reduce it at home. No head, neck, back pain. Not on blood thinners. No numbness or tingling. Review of Systems Neurologic: denies: Headache, Head injury PD PAST MEDICAL HISTORY - Past Medical History Cardiovascular: Murmur Respiratory: None Neuro: None Endocrine/Autoimmune: None GI: None : None HEENT: Chronic vision loss Psych: Anxiety, Panic attacks Musculoskeletal: Osteoarthritis Derm: None - Past Surgical History General: Other Ortho: Rotator cuff repair, Other - Present Medications Home Medications: Ambulatory Orders Medication Instructions Recorded Confirmed Pnv No.121/Iron/Folic Acid 1 each PO DAILY 10/14/18 02/07/19 [ Multivitamin Tablet] Cyanocobalamin (Vitamin B-12) 2 tab PO DAILY 11/16/18 02/07/19 [Vitamin B-12] Acetaminophen [Tylenol] 650 mg PO Q6H PRN 01/26/19 02/07/19 Ibuprofen [Motrin] 600 mg PO Q6H PRN 01/26/19 02/07/19 Hydrocodone/Acetaminophen 1 each PO Q6HR PRN #30 tablet 04/04/19 [Hydrocodone-Acetamin 5-325 mg] Ondansetron Odt [Zofran] 4 mg TL Q6H PRN #10 tablet 04/04/19 Acetaminophen/Cod 300/30 [Tylenol 1 each PO Q4-6H PRN #14 tablet 06/30/23 #3] cephALEXin [Keflex] 500 mg PO Q6H #28 cap 06/30/23 - Allergies Allergies/Adverse Reactions: Allergies Allergy/AdvReac Type Severity Reaction Status Date / Time naproxen AdvReac bladder Verified 06/30/23 20:19 irritation oxycodone AdvReac Nausea Verified 06/30/23 20:19 - Social History Smoking Status: Current some day smoker PD ED PE NORMAL - Vitals Vital signs reviewed: Yes - General General: Alert and oriented X 3, No acute distress - HEENT HEENT: Moist mucous membranes - Derm Derm: Warm and dry - Extremities Extremities: Other (Abrasion to the dorsum of the right foot/second toe. Deformity noted. Neurovascular intact. Otherwise normal examination of the foot.) - Neuro Neuro: Alert and oriented X 3 Results - Vitals Vitals: Vital Signs - 24 hr 06/30/23 20:13 Temperature 36.4 C L Heart Rate 74 Respiratory 17 Rate Blood Pressure 156/82 H O2 Saturation 100 Oxygen O2 Source Room air - Rads (name of study) R foot xray Relevant Findings:: Final report received, See rad report Procedures - Reduction Body part reduced: Right, Toe Fracture or dislocation: Dislocation Anesthesia: Digital block, Lidocaine (enter cc) (3) Reduction aftercare: NV intact, Xray confirms reduction, Alignment improved, Splint applied, Patient tolerated well PD Medical Decision Making - ED course Complexity details: reviewed results, re-evaluated patient, considered differential, d/w patient ED course: 53-year-old male with a right second toe dislocation. Lidocaine was used to anesthetize the area and the toe was reduced. Tolerated well. There is an abrasion at the site. Cleansed and bandaged. No fracture. We will place on Keflex and pain medication for home. The toe was ike taped. Patient counseled regarding signs and symptoms for which I believe and urgent re- evaluation would be necessary. Patient with good understanding of and agreement to plan and is comfortable going home at this time This document was made in part using voice recognition software. While efforts are made to proofread this document, sound alike and grammatical errors may occur. Tdap given Departure - Departure Disposition: 01 Home, Self Care Clinical Impression: Toe abrasion Qualifiers: Encounter type: initial encounter Laterality: right Qualified Code(s): S90.414A - Abrasion, right lesser toe(s), initial encounter Toe dislocation Qualifiers: Encounter type: initial encounter Laterality: right Qualified Code(s): S93.104A - Unspecified dislocation of right toe(s), initial encounter Condition: Good Instructions: ED Abrasion, ED Dislocation Toe Follow-Up: your,doctor in 1 week for wound check [Other] Prescriptions: cephALEXin [Keflex] 500 mg PO Q6H #28 cap Acetaminophen/Cod 300/30 [Tylenol #3] 1 each PO Q4-6H PRN #14 tablet PRN Reason: toe pain Comments: Your prescriptions were sent to the [facility] pharmacy. Please take all antibiotics until gone. You can continue to ike tape the toe for the next few days. I do not see any fracture on the x-ray, you did have a dislocation and this was reduced. Keep the wound clean. You may bear weight as tolerated. I am prescribing a short course of narcotic pain medication for you. These are potentially dangerous and addictive medications that should be used carefully. These medications may constipate you. Take an nntn-ngx-nufebty stool softener (docusate) twice daily with plenty of water while taking these medications. If you go 24 hours without a bowel movement, take agsq-snb-nniknfy miralax, per package instructions. Do not drink or drive while taking these medications. If you received narcotic or sedating medications while in the emergency department, do not drive for 24 hours. Store this medication in a safe, secure place and out of reach of children. It is a violation of federal law to give or sell this medication to another person or to use in a manner other than prescribed. The ED will not refill narcotic prescriptions, including prescriptions lost or stolen. To dispose of unwanted medications: 1. [facility] at [address] in [place] has a medication drop box. They accept prescription medications (in pill form) Wednesday through Wednesday 9:00 a.m. to 5:00 p.m. 2. [facility] [employer] accepts prescription medications (in pill form only) for disposal year round. Call for more information. 3. Contact the [facility] for the next [facility] sponsored prescription drug collection event. , [phone], or [phone]; Forms: PCP List
[2023-06-30] MEDS ORDERED: lidocaine 1% 20 ML MDV ONE (20:36)
[2023-06-30] MEDS: LIDOCAINE 2% 10 ML MDV SUBQ ONE (20:53)
[2023-06-30] MEDS: cephALEXin 250 MG CAPSULE PO STA (21:16)
[2023-06-30] MEDS: TETANUS/DIPHTHERIA/PERTUSSIS 0.5 ML SYRINGE IM ONE (21:17)
--- NOTE | 2023-06-30 21:22 | XRAY Report ---
PROCEDURE: Foot 3+V RT INDICATIONS: foot injury TECHNIQUE: 3 views of the foot were acquired. COMPARISON: None. FINDINGS: Bones: No acute fracture. Probable superior lateral dislocation of the second PIP joint. Or dislocat ions. No suspicious bony lesions. Soft tissues: No suspicious soft tissue calcifications or masses. IMPRESSION: Probable superior lateral dislocation of the second PIP joint. Correlate with physical exam. Reviewed by: Idalmis Reyes MD on 06/30/2023 9:21 PM [facility] Approved by: Idalmis Reyes MD on 06/30/2023 9:21 PM [facility] Station ID: [id number]
--- NOTE | 2023-06-30 21:23 | XRAY Report ---
PROCEDURE: Toe(s) 2+V RT INDICATIONS: post reduction TECHNIQUE: 2 views of the second toe(s) acquired. COMPARISON: Right foot radiograph 06/30/2023 FINDINGS: Bones: Interval reduction of second PIP joint dislocation. No acute fracture. Alignment appears paz omic Soft tissues: No suspicious soft tissue densities. IMPRESSION: Interval reduction of second PIP joint dislocation. Reviewed by: Idalmis Reyes MD on 06/30/2023 9:22 PM PST Approved by: Idalmis Reyes MD on 06/30/2023 9:22 PM PST Station ID: [id number]
== END 2023-06-30 21:30 | disposition home or self-care (01) ==
LOC: ED 20:13
DX: S90.414A Abrasion, right lesser toe(s), initial encounter (principal); S93.114A Dislocation of interphalangeal joint of right lesser toe(s), initial encounter; W22.8XXA Striking against or struck by other objects, initial encounter; F17.200 Nicotine dependence, unspecified, uncomplicated
CPT/HCPCS: 28665; 73630; 73660; 90471; 90715; 99283; A9270; 28515